=== PATIENT | male | born 1975 | race Caucasian/White ===

== ENCOUNTER 2021-10-27 09:07 | Outpatient (CLI) | payer OTHER, SELFPAY ==
--- NOTE | 2021-10-27 09:12 | XR_ITS ---
WS: [id number] XR acute abdomen series [id number] REASON FOR EXAM: LUQ ABDOMINAL PAIN FINDINGS: No free air or retroperitoneal air. Unremarkable bowel gas pattern. Calculi in the right upper quadrant which could be within the gallbladder or the kidney. Complex calcification in the lower right pelvis. Not within the urinary tract. Unlikely significant. XR/XR acute abdomen series [id number] IMPRESSION: No acute abnormality. Right intrarenal calculi versus cholelithiasis.
== END 2021-10-27 09:08 | disposition home or self-care (01) ==
LOC: RAD 09:10
PROVIDERS: PCP Family Medicine; Visit Provider Family Medicine
DX: R10.12 Left upper quadrant pain (principal)
CPT/HCPCS: 74022

== ENCOUNTER 2021-10-30 09:20 | Outpatient (CLI) | payer OTHER, SELFPAY ==
--- NOTE | 2021-10-30 09:30 | CT_ITS ---
WS: [id number] CT ABDOMEN PELVIS TECHNIQUE: Contrast-enhanced CT of the abdomen and pelvis with coronal and sagittal reformatted image s. CLINICAL INFORMATION: ELEVATED LIVER ENZYMES COMPARISON: None. DLP: 2084.[address] scans at [facility] use at least one of these dose optimization techniques: automated e xposure control; mA and/or kV adjustment per patient size (includes targeted exams where dose is matc hed to clinical indication); or iterative reconstruction. FINDINGS: Diffuse fatty infiltration of the liver. Normal portal vein and splenic vein. Small calculi near the gallbladder neck. No gallbladder wall thickening or pericholecystic fluid. Normal GE junction. Lung b ases are well aerated. Adrenal glands are normal. Normal renal parenchymal enhancement. No hydronephr osis. Left renal cyst measuring 3.3 x 2.3 CM. Tiny right renal cyst. Normal spleen. Normal pancreas. Small calculus in the distal common bile duct at the duodenal ampulla. Calculus measures 5 mm. Recomm end correlation Biliary function studies. Minimal dilatation common bile duct measuring 5-6 mm. Marilyn l caliber abdominal aorta. No evidence of high-grade small or large bowel obstruction. Normal appendi x in the right lower quadrant. Tiny fat-containing umbilical hernia. Incidental hemangioma L3 vertebr al body. CT/CT abdomen pelvis w con* [id number] IMPRESSION: 1. Small gallbladder calculi near the gallbladder neck. 2. No gallbladder wall thickening or pericholecystic fluid. 3. Additional distal common bile duct calculus at the duodenal ampulla. This m easures 5 mm. Mild prominence of the common bile duct measuring 5-6mm. Correlat ion with biliary function studies. This can be further evaluated with ERCP. 4. Mild diffuse fatty infiltration of the liver. 5. Bilateral renal cysts left greater than right described above. 6. No other significant findings.
[2021-10-30] MEDS: iohexol 300 mg/mL 100 mL Btl IV (09:54)
== END 2021-10-30 09:21 | disposition home or self-care (01) ==
PROVIDERS: PCP Family Medicine; Visit Provider Family Medicine
DX: R74.8 Abnormal levels of other serum enzymes (principal); Q61.02 Congenital multiple renal cysts; K76.0 Fatty (change of) liver, not elsewhere classified
CPT/HCPCS: 74177

== ENCOUNTER 2021-10-30 14:58 | Outpatient (CLI) | payer OTHER, SELFPAY ==
[2021-10-30 15:20] LABS: Basophils % 0.6 %; Eosinophils # 0.1 10^3/uL (0.0-0.8); Eosinophils % 2.7 %; Hematocrit 50.9 % (42.0-52.0); Hemoglobin 17.6 g/dL (11.7-16.6); Lymphocytes % 29.8 %; Mean Corpuscular HGB Conc 34.6 g/dL (30.0-36.0); Mean Corpuscular Hemoglobin 31.3 pg (28.0-34.0); Mean Corpuscular Volume 90.6 fl (80-94); Mean Platelet Volume 10.1 fL (7.4-10.4); Monocytes # 0.3 10^3/uL (0.2-0.9); Monocytes % 9.4 %; Neutrophils # 1.95 10^3/uL (1.8-7.7); Neutrophils % 57.5 %; Nucleated Red Blood Cells % 0 %; Platelet Count 215 10^3/cmm (130-400); Red Blood Count 5.62 10^6/uL (4.1-5.3); Red Cell Distribution Width 12.1 % (12.1-15.1); White Blood Count 3.4 10^3/uL (4.0-10.0)
[2021-10-30 15:33] LABS: Alanine Aminotransferase 543 U/L (0-41); Albumin Level 4.6 g/dL (3.5-5.2); Alkaline Phosphatase 96 IU/L (40-130); Aspartate Amino Transferase 159 U/L (0-40); Blood Urea Nitrogen 7 mg/dL (6-20); Carbon Dioxide 24 mmol/L (22-29); Chloride 102 mmol/L (98-107); Globulin 2.2 g/dL (1.3-4.6); Glomerular Filtration Rate 104.1 mL/min (90-130); Glucose 102 mg/dL (65-115); Osmolality Calculated 288 mOsm/kg (285-295); Sodium 140 mmol/L (136-145); Total Bilirubin 3.2 mg/dL (0.15-1.2); Total Protein 6.8 g/dL (6.6-8.7)
[2021-10-30 15:55] LABS: Erythrocyte Sedimentation Rate 3 mm/hr (0-10)
== END 2021-10-30 14:59 | disposition home or self-care (01) ==
PROVIDERS: PCP Family Medicine; Visit Provider Clinical Nurse Specialist Adult Health
DX: R74.8 Abnormal levels of other serum enzymes (principal)
CPT/HCPCS: 80053; 85025; 85651; 86140

== ENCOUNTER 2021-11-25 20:48 | Emergency (ER) | payer OTHER, SELFPAY ==
--- NOTE | 2021-11-25 20:59 | XRR_ITS ---
PROCEDURE INFORMATION: Exam: XR Chest Exam date and time: 11/25/2021 8:59 PM Age: 46 years old Clinical indication: Pain; Other: Ruq; Additional info: Cp TECHNIQUE: Imaging protocol: XR of the chest. Views: 1 view. COMPARISON: No relevant prior studies available. FINDINGS: Lungs: No consolidation. Pleural spaces: No pleural effusion. No pneumothorax. Heart/Mediastinum: No cardiomegaly. Bones/joints: Unremarkable. XR/XR chest 1V portable [id number] IMPRESSION: No acute abnormality demonstrated.
--- NOTE | 2021-11-25 20:59 | ECG_ITS ---
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
[2021-11-25 21:03] VITALS: BP 203/134; PULSE 94; RESP 18; TEMP 36.8; O2SAT 98; BMI 32.8
--- NOTE | 2021-11-25 21:08 | W.ED.ABDPA2 ---
HPI - Abdominal Pain General: Chief Complaint: Chest Pain Stated Complaint: R SIDED ABDOMINAL PAIN Time Seen by Provider: 11/25/21 20:50 Source: patient and EMS Mode of arrival: EMS Limitations: no limitations History of Present Illness: HPI narrative: 46-year-old male states that started having chest pain along with abdominal pain that started roughly 6 PM. He states it started in his right upper quadrant and radiated to his chest states pain is sharp in nature rates it a 9 out of 10 currently received 10 mg of morphine by EMS with little to no relief. He states that he had a gallbladder stent placed on 1220 in [place] and is scheduled to have his gallbladder out in January. No history of coronary artery disease. He denies any shortness of breath denies any worsening improving factors denies any vomiting or diarrhea. Associated Symptoms: Denies chills, dysuria and fever(s) Review of Systems Const: Denies: fever(s), chills, body aches or change in appetite Eyes: Denies: blurry vision or eye discomfort ENMT: Denies: throat pain or dental pain Card: Reports: chest pain Resp: Denies: dyspnea GI: Reports: abdominal pain : Denies: dysuria Musc: Denies: neck pain or back pain Skin/Breast: Denies: rash Neuro: Denies: headache(s) Psych: Denies: depression Ronald/Lymph: Denies: easy bruising All/Imm: Denies: urticaria PFSH ED PFSH: Medical History Choledocholithiasis Social History (Updated 11/25/21 @ 21:10 by Matt Jones MD) Substance/Drug Use: never Physical Exam Const: COMMON NORMALS: no acute distress, patient oriented x3 and healthy appearing HENMT: COMMON NORMALS: normocephalic and atraumatic HEAD & SCALP: normocephalic and atraumatic Eye: COMMON NORMALS: Equal, round and reactive pupils present and EOMs intact bilaterally PUPIL: Yes Equal, round and reactive pupils present Neck/C-Spine: COMMON NORMALS: full ROM and supple Chest: COMMONS NORMALS: normal inspection of the chest and normal palpation of entire chest wall Resp: COMMON NORMALS: normal respiratory effort, No retractions, No use of accessory muscles and clear to auscultation bilaterally AUSCULTATION: clear to auscultation bilaterally Cardio: COMMON NORMALS: regular rate, regular rhythm and No murmurs present (Cardio) RATE: regular rate RHYTHM: regular rhythm GI: COMMON NORMALS: Normal to inspection, nondistended, normoactive bowel sounds present, Soft to palpation, non-tender and no masses PALPATION: Yes Soft to palpation Extremity: COMMON NORMALS: normal to inspection and full ROM Neuro: COMMON NORMALS: patient oriented x3, moves all extremities and no focal motor deficits Psych: COMMON NORMALS: mental status grossly normal, Normal thought process present and cooperative THOUGHT PROCESS: Normal thought process present Skin: COMMON NORMALS: no rashes or lesions noted and no wounds GENERAL SKIN EXAM: no rashes or lesions noted Course Vital Signs: Vital signs: Vital Signs Temperature 98.3 F 11/25/21 21:03 Pulse Rate 90 11/26/21 01:21 Respiratory Rate 16 11/26/21 01:21 Blood Pressure 153/100 11/26/21 01:21 Pulse Oximetry 97 11/26/21 01:21 MDM - Abdominal Pain MDM Narrative: Medical decision making narrative: Patient presents here with chest pain and abdominal pain. It is mainly right upper quadrant abdominal pain believe that pain in his chest is radiating from the abdomen. This is likely biliary colic CT scan here showed no acute findings he does have some pneumobilia is likely from his recent procedure. He has no signs of blockage of his stent of his common bile duct. His lactate white count here is normal he feels much improved after IV pain meds he is to follow-up with his surgeon at [facility] in 2 to 3 days and return if worsening he understands agrees to plan. Lab Data: Labs: Lab Results 11/25/21 11/25/21 11/25/21 20:55 20:55 20:55 WBC 8.3 10^3/uL 10^3/ uL (4.0-10.0) RBC 5.39 10^6/uL H 10 ^6/uL (4.1-5.3) Hgb 16.7 g/dL H g/dL (11.7-16.6) Hct 47.1 % % (42.0-52.0) MCV 87.4 fl fl (80-94) MCH 31.0 pg pg (28.0-34.0) MCHC 35.5 g/dL g/dL (30.0-36.0) RDW 11.9 % L % (12.1-15.1) Plt Count 258 10^3/cmm 10^3 /cmm (130-400) MPV 9.5 fL fL (7.4-10.4) Neut % (Auto) 52.2 % % Lymph % (Auto) 36.5 % % Beckham % (Auto) 9.5 % % Eos % (Auto) 1.1 % % Baso % (Auto) 0.5 % % Neut # (Auto) 4.34 10^3/uL 10^3 /uL (1.8-7.7) Lymph # (Auto) 3.0 10^3/uL 10^3/ uL (0.8-4.8) Beckham # (Auto) 0.8 10^3/uL 10^3/ uL (0.2-0.9) Eos # (Auto) 0.1 10^3/uL 10^3/ uL (0.0-0.8) Baso # (Auto) 0.0 10^3/uL 10^3/ uL (0.0-0.1) Nucleated RBC % (a uto) 0 % % Nucleated RBCs # 0.0 /100WBC /100W BC D-Dimer 0.29 ug/mIFEU ug/ mIFEU (0-0.59) Sodium 141 mmol/L mmol/L (136-145) Potassium 3.9 mmol/L mmol/L (3.5-5.1) Chloride 100 mmol/L mmol/L (98-107) Carbon Dioxide 25 mmol/L mmol/L (22-29) Anion Gap 19.9 H (5-19) BUN 16 mg/dL mg/dL (6-20) Creatinine 1.0 mg/dL mg/dL (0.7-1.2) GFR Calculation 80.4 mL/min L mL/ min (90-130) Glucose 119 mg/dL H mg/dL (65-115) Calculated Osmolal ity 294 mOsm/kg mOsm/ kg (285-295) Lactate Calcium 9.3 mg/dL mg/dL (8.5-10.5) Total Bilirubin 1.1 mg/dL mg/dL (0.15-1.2) AST 38 U/L U/L (0-40) ALT 69 U/L H U/L (0-41) Alkaline Phosphata se 98 IU/L IU/L (40-130) Troponin T Baselin e Troponin T 120 Min yuhaaviatam Delta Troponin T Total Protein 7.2 g/dL g/dL (6.6-8.7) Albumin 4.8 g/dL g/dL (3.5-5.2) Globulin 2.4 g/dL g/dL (1.3-4.6) Lipase 34 U/L U/L (13-60) 11/25/21 11/25/21 11/25/21 20:55 22:43 22:43 WBC RBC Hgb Hct MCV MCH MCHC RDW Plt Count MPV Neut % (Auto) Lymph % (Auto) Beckham % (Auto) Eos % (Auto) Baso % (Auto) Neut # (Auto) Lymph # (Auto) Beckham # (Auto) Eos # (Auto) Baso # (Auto) Nucleated RBC % (a uto) Nucleated RBCs # D-Dimer Sodium Potassium Chloride Carbon Dioxide Anion Gap BUN Creatinine GFR Calculation Glucose Calculated Osmolal ity Lactate 0.8 mmol/L mmol/L (0.5-2.2) Calcium Total Bilirubin AST ALT Alkaline Phosphata se Troponin T Baselin e 12 ng/L ng/L (0-15) Troponin T 120 Min yuhaaviatam 12.67 ng/L ng/L (0-15) Delta Troponin T 0.67 ABS# ABS# (0-10) Total Protein Albumin Globulin Lipase Imaging Data ^: CXR: Radiologist's impression: No acute abnormality demonstrated. CT Abd/Pel: Radiologist's impression: IMPRESSION: 1. Small calcified gallstones in the gallbladder, unchanged. 2. Minimal air within the gallbladder, related to pneumobilia. Mild mural thickening of the gallbladder. No pericholecystic fluid. These findings are new when compared to 10/30/2021. 3. Decreased hepatic density is noted, consistent with hepatic steatosis. This is unchanged. 4. No acute bowel abnormality identified. EKG Data ^: EKG 1: Attestation: I personally reviewed and interpreted this EKG as follows: EKG interpretation date: 11/25/21 EKG interpretation time: 21:09 Interpretation: nsr hr [address] or t wave abnormalities qrs 110 qtc 396 EKG 2: Attestation: I personally reviewed and interpreted this EKG as follows: EKG interpretation date: 11/25/21 EKG interpretation time: 23:09 Interpretation: nsr hr [address] or t wave abnormalities qrs 115 qtc 418 Discharge Plan Discharge Patient Disposition: Home Clinical Impression: Abdominal pain Qualifiers: Abdominal location: right upper quadrant Qualified Code(s): R10.11 - Right upper quadrant pain Condition: Stable Prescriptions: New hydrocodone-acetaminophen 5-325 mg tablet 1 tab PO Q6H PRN (Reason: pain) Qty: 14 RF: 0 ondansetron 4 mg tablet,disintegrating 4 mg PO Q6H PRN (Reason: nausea and vomiting) Qty: 14 RF: 0 Discharge Orders: Discharge ED (Routine); Ordered 11/26/21 Ordered By: Matt Jones Referrals: Ramana Mcclellan DO [Primary Care Provider] - Discharge Diet: Advance as tolerated Discharge Activity: Resume usual activity Patient Instructions: Abdominal Pain (ED), Opioid Safety Coding Level of Care Code ED Belting Inspector for Chg Fwd Exam Comprehensive
[2021-11-25 21:09] LABS: Basophils % 0.5 %; Eosinophils # 0.1 10^3/uL (0.0-0.8); Eosinophils % 1.1 %; Hematocrit 47.1 % (42.0-52.0); Hemoglobin 16.7 g/dL (11.7-16.6); Lymphocytes % 36.5 %; Mean Corpuscular HGB Conc 35.5 g/dL (30.0-36.0); Mean Corpuscular Volume 87.4 fl (80-94); Mean Platelet Volume 9.5 fL (7.4-10.4); Monocytes # 0.8 10^3/uL (0.2-0.9); Monocytes % 9.5 %; Neutrophils # 4.34 10^3/uL (1.8-7.7); Neutrophils % 52.2 %; Nucleated Red Blood Cells % 0 %; Platelet Count 258 10^3/cmm (130-400); Red Blood Count 5.39 10^6/uL (4.1-5.3); Red Cell Distribution Width 11.9 % (12.1-15.1); White Blood Count 8.3 10^3/uL (4.0-10.0)
[2021-11-25 21:10] VITALS: BP 182/128; PULSE 94; RESP 20; O2SAT 96
[2021-11-25] MEDS: ondansetron 2 mg/ML SDV 2 mL 4 MG IVP (21:10)
[2021-11-25 21:11] VITALS: RESP 18
[2021-11-25] MEDS: HYDROmorphone 1 mg/mL INJ 1 mL IVP ×3 (21:11→23:28)
[2021-11-25 21:20] LABS: D Dimer 0.29 ug/mIFEU (0-0.59)
--- NOTE | 2021-11-25 21:21 | CTR_ITS ---
PROCEDURE INFORMATION: Exam: CT Abdomen And Pelvis With Contrast Exam date and time: 11/25/2021 9:21 PM Age: 46 years old Clinical indication: Abdominal pain; Localized; Right; Prior surgery; Surgery date: <1 month; Patient HX: C/O R sided abd pain w recnt gb stent placement TECHNIQUE: Imaging protocol: Computed tomography of the abdomen and pelvis with contrast. Radiation optimization: All CT scans at this facility use at least one of these dose optimization techniques: automated exposure control; mA and/or kV adjustment per patient size (includes targeted exams where dose is matched to clinical indication); or iterative reconstruction. Contrast material: OMNI 300; Contrast volume: 95 ml; Contrast route: INTRAVENOUS (IV); COMPARISON: CT abdomen pelvis w con* [id number] 10/30/2021 9:52 AM RADIATION DOSE METRICS: Total DLP (mGy-cm): 1981.38 FINDINGS: Tubes, catheters and devices: There is a common duct stent identified. The stent is located in the distal common duct. The tip of the stent is in the duodenum. Lungs: The lung bases appear unremarkable. Liver: Decreased hepatic density is noted, consistent with hepatic steatosis. Intrahepatic pneumobilia noted. Gallbladder and bile ducts: Mild pneumobilia noted. Minimal air within the gallbladder, related to pneumobilia. Small calcified gallstones in the gallbladder. Mild mural thickening of the gallbladder. Pancreas: Unremarkable. No ductal dilation. Spleen: Unremarkable. No splenomegaly. Adrenal glands: Unremarkable. No mass. Kidneys and ureters: Simple appearing 3.5 cm left renal cyst. Less than 10 mm simple appearing right renal cyst. No solid renal masses. No calculus or hydronephrosis. Stomach and bowel: No acute gastric abnormality demonstrated. The small bowel is unremarkable as demonstrated. No acute abnormality/inflammatory change of the colon. Appendix: The appendix is normal in appearance. No evidence of appendicitis. Intraperitoneal space: No pneumoperitoneum. No significant fluid collection. Vasculature: No evidence of aortic aneurysm. Minimal atherosclerotic calcification of the distal aorta. Lymph nodes: No pathologically enlarged lymph nodes are demonstrated. No pathologically enlarged lymph nodes are demonstrated. Urinary bladder: The urinary bladder is unremarkable in appearance. Reproductive: Unremarkable as visualized. Bones/joints: No fracture or other acute osseous abnormality. Soft tissues: The abdominal wall demonstrates a small umbilical hernia, containing only fat. CT/CT abdomen pelvis w con* [id number] IMPRESSION: 1. Small calcified gallstones in the gallbladder, unchanged. 2. Minimal air within the gallbladder, related to pneumobilia. Mild mural thickening of the gallbladder. No pericholecystic fluid. These findings are new when compared to 10/30/2021. 3. Decreased hepatic density is noted, consistent with hepatic steatosis. This is unchanged. 4. No acute bowel abnormality identified. COMMENTS: Consistent with the [employer] [place]'s Incidental Findings Committee white paper (J Am Rocio Radiol 2018): Any incidental renal lesion less than 1 cm or classified as too small to characterize, or any incidental cystic renal lesion characterized as simple-appearing, is likely benign. No follow-up imaging is recommended for these lesions per consensus recommendations based on imaging criteria.
[2021-11-25 21:25] LABS: Troponin(5th) Baseline 12 ng/L (0-15)
[2021-11-25 21:26] VITALS: RESP 25
[2021-11-25 21:28] LABS: Alanine Aminotransferase 69 U/L (0-41); Albumin Level 4.8 g/dL (3.5-5.2); Alkaline Phosphatase 98 IU/L (40-130); Anion Gap 19.9 (5-19); Aspartate Amino Transferase 38 U/L (0-40); Blood Urea Nitrogen 16 mg/dL (6-20); Calcium 9.3 mg/dL (8.5-10.5); Carbon Dioxide 25 mmol/L (22-29); Chloride 100 mmol/L (98-107); Globulin 2.4 g/dL (1.3-4.6); Glomerular Filtration Rate 80.4 mL/min (90-130); Glucose 119 mg/dL (65-115); Lipase 34 U/L (13-60); Osmolality Calculated 294 mOsm/kg (285-295); Potassium 3.9 mmol/L (3.5-5.1); Sodium 141 mmol/L (136-145); Total Bilirubin 1.1 mg/dL (0.15-1.2); Total Protein 7.2 g/dL (6.6-8.7)
[2021-11-25] MEDS: iohexol 300 mg/mL 100 mL Btl IV (21:56)
[2021-11-25 22:00] VITALS: BP 195/133; PULSE 84; RESP 18; O2SAT 95
[2021-11-25] MEDS: labetalol 5 mg/mL SDV 20mL 10 MG IVP ×2 (22:35→23:30)
--- NOTE | 2021-11-25 22:37 | USR_ITS ---
PROCEDURE INFORMATION: Exam: US Abdomen, Limited; Right Upper Quadrant Exam date and time: 11/25/2021 10:37 PM Age: 46 years old Clinical indication: Abdominal pain; Additional info: Abd pain TECHNIQUE: Imaging protocol: US abdomen. Real time ultrasound with image documentation. Limited exam focused on the right upper quadrant. COMPARISON: CT abdomen pelvis w con* [id number] 11/25/2021 9:55 PM FINDINGS: Limitations: Study limited by patient body habitus and excessive bowel gas. Liver: Abnormally increased hepatic echogenicity, consistent with hepatic steatosis. Gallbladder: Sludge demonstrated in the dependent portion of the gallbladder. Known gallstones, seen on previous CT abdomen of 11/25/2021, are not demonstrated. Common bile duct: Common duct measures 12 mm in diameter. Known common duct stent is not demonstrated. Pancreas: The pancreas is obscured by overlying intestinal gas. Right kidney: Right kidney measures 11.2 cm in length. Right kidney appears unremarkable as demonstrated. US/US gall bladder [id number] IMPRESSION: 1. Study limited by patient body habitus and excessive bowel gas. 2. Abnormally increased hepatic echogenicity, consistent with hepatic steatosis. 3. Sludge demonstrated in the dependent portion of the gallbladder. Known gallstones, seen on previous CT abdomen of 11/25/2021, are not demonstrated. 4. Common duct measures 12 mm in diameter. Known common duct stent is not demonstrated.
--- NOTE | 2021-11-25 22:37 | CTR_ITS ---
PROCEDURE INFORMATION: Exam: CTA Chest Without And With Contrast Exam date and time: 11/25/2021 10:37 PM Age: 46 years old Clinical indication: Right-sided; Patient HX: C/O R side abd/chest/epigastric pain; Additional info: Chest pain TECHNIQUE: Imaging protocol: Computed tomographic angiography of the chest without and with contrast. 3D rendering (Not supervised by radiologist): MIP and/or 3D reconstructed images were created by the technologist. Radiation optimization: All CT scans at this facility use at least one of these dose optimization techniques: automated exposure control; mA and/or kV adjustment per patient size (includes targeted exams where dose is matched to clinical indication); or iterative reconstruction. Contrast material: VISI 320; Contrast volume: 95 ml; Contrast route: INTRAVENOUS (IV); COMPARISON: CR (CHEST, ) 11/25/2021 9:24 PM RADIATION DOSE METRICS: Total DLP (mGy-cm): 1961.76 FINDINGS: Pulmonary arteries: Pulmonary arteries are normal in caliber. No filling defects are demonstrated. No evidence of pulmonary embolism. Aorta: The thoracic aorta appears unremarkable. No aneurysm or dissection demonstrated. Lungs: Mild dependent atelectasis. No consolidative infiltrates. Pleural spaces: No pleural effusion or pneumothorax noted. Heart: Borderline cardiomegaly. No pericardial effusion. Lymph nodes: Unremarkable. No enlarged lymph nodes. Bones/joints: Mild degenerative thoracic spine changes are noted. No acute osseous abnormality. Soft tissues: The soft tissues appear unremarkable. CT/CT angio chest [id number] IMPRESSION: 1. Pulmonary arteries appear unremarkable. No evidence of pulmonary embolism. 2. No evidence of thoracic aortic aneurysm or dissection. 3. Mild dependent atelectasis. No consolidative infiltrates.
[2021-11-25] MEDS: lidocaine 2% viscous 15 ML, aluminum-mag hydrox-simethicon 30 ML, sucralfate oral liq 1 GM PO (22:47)
--- NOTE | 2021-11-25 22:59 | ECG_ITS ---
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1975 Requested By: Matt Jones Order Number: [id number] Reading MD: PAMELA DEUTSCH Measurements Intervals [place]us Rate: 84 P: 0 DC: 215 QRS: 5 QRSD: 115 T: 3 QT: 377 QTc: 446 Interpretive Statements SINUS RHYTHM WITH FIRST DEGREE AV BLOCK INCOMPLETE RIGHT BUNDLE BRANCH BLOCK [90+ ms QRS DURATION, TERMINAL R IN V1/V2, 40+ ms S IN I/aVL/V4/V5/V6] Compared to ECG 11/25/2021 21:09:19 First degree AV block now present Electronically Signed On 11-26-2021 17:49:24 BIOINFORMATICS SPECIALIST by PAMELA DEUTSCH [email or web address] Digital [email or web address] [email or web address] [email or web address]-[id number]
[2021-11-25] MEDS: iodixanol 320 mg/mL 100mL Btl IV (23:05)
[2021-11-25 23:06] LABS: Troponin 5 2HR 12.67 ng/L (0-15); Troponin 5 2HR Delta 0.67 ABS# (0-10)
[2021-11-25 23:07] LABS: Lactate (Lactic Acid level) 0.8 mmol/L (0.5-2.2)
[2021-11-25 23:28] VITALS: RESP 17
[2021-11-26] VITALS: BP 153/100; PULSE 78; RESP 22; O2SAT 97
[2021-11-26] MEDS: HYDROcodone-acetaminophen 5-325 mg Tablet 2 TAB PO (01:10)
[2021-11-26 01:21] VITALS: BP 153/100; PULSE 90; RESP 16; O2SAT 97
== END 2021-11-26 01:23 | disposition home or self-care (01) ==
PROVIDERS: Emergency Provider Emergency Medicine; PCP Family Medicine
DX: R10.11 Right upper quadrant pain (principal)
CPT/HCPCS: 71045; 71275; 74177; 76705; 80053; 83605; 83690; 84484; 85025; 85378; 93005; 96374; 96375; 96376; 99284; J1170; J2405; J3490; Q9967

== ENCOUNTER 2021-11-28 13:52 | Outpatient (CLI) | payer OTHER, SELFPAY ==
[2021-11-28 14:07] LABS: Basophils % 0.1 %; Eosinophils % 0.2 %; Hematocrit 46.8 % (42.0-52.0); Hemoglobin 16.2 g/dL (11.7-16.6); Lymphocytes # 0.7 10^3/uL (0.8-4.8); Lymphocytes % 8.7 %; Mean Corpuscular HGB Conc 34.6 g/dL (30.0-36.0); Mean Corpuscular Volume 89.5 fl (80-94); Mean Platelet Volume 9.7 fL (7.4-10.4); Monocytes # 0.6 10^3/uL (0.2-0.9); Monocytes % 7.2 %; Neutrophils # 6.73 10^3/uL (1.8-7.7); Neutrophils % 83.4 %; Nucleated Red Blood Cells % 0 %; Platelet Count 171 10^3/cmm (130-400); Red Blood Count 5.23 10^6/uL (4.1-5.3); Red Cell Distribution Width 11.9 % (12.1-15.1); White Blood Count 8.1 10^3/uL (4.0-10.0)
[2021-11-28 14:26] LABS: Alanine Aminotransferase 41 U/L (0-41); Albumin Level 4.3 g/dL (3.5-5.2); Alkaline Phosphatase 71 IU/L (40-130); Amylase 27 U/L (28-100); Anion Gap 15.7 (5-19); Aspartate Amino Transferase 19 U/L (0-40); Blood Urea Nitrogen 14 mg/dL (6-20); Calcium 8.5 mg/dL (8.5-10.5); Carbon Dioxide 27 mmol/L (22-29); Chloride 99 mmol/L (98-107); Globulin 2.1 g/dL (1.3-4.6); Glomerular Filtration Rate 104.1 mL/min (90-130); Glucose 137 mg/dL (65-115); Osmolality Calculated 289 mOsm/kg (285-295); Potassium 3.7 mmol/L (3.5-5.1); Sodium 138 mmol/L (136-145); Total Bilirubin 2.7 mg/dL (0.15-1.2); Total Protein 6.4 g/dL (6.6-8.7)
== END 2021-11-28 13:53 | disposition home or self-care (01) ==
LOC: LAB 13:55
PROVIDERS: PCP Family Medicine; Visit Provider Clinical Nurse Specialist Adult Health
DX: R10.12 Left upper quadrant pain (principal); R74.8 Abnormal levels of other serum enzymes
CPT/HCPCS: 80053; 82150; 85025